=== PATIENT | male | born 1970 ===

== ENCOUNTER 2021-08-14 08:04 | Emergency (ER) | payer MEDICAID ==
[2021-08-14 09:36] LABS: ANION GAP 13.4 mEq/L (7-13)
[2021-08-14 09:48] LABS: CORONAVIRUS COVID-19 NAA NEGATIVE (NEGATIVE)
== END 2021-08-14 09:27 | disposition left against medical advice (07) ==
LOC: DL.ED 08:04
DX: R10.12 Left upper quadrant pain (principal); F17.210 Nicotine dependence, cigarettes, uncomplicated; Z20.822 Contact with and (suspected) exposure to COVID-19
CPT/HCPCS: 0240U; 36415; 80053; 82150; 83690; 85025; 86140; 99284